=== PATIENT | male | born 1975 | race Caucasian/White ===

== ENCOUNTER → 2021-10-16 13:20 | Outpatient (BNVA) | payer OTHER, SELFPAY | PROVIDERS: Family Provider Family Medicine; PCP Family Medicine; Visit Provider Family Medicine | DX: Z00.00 Encounter for general adult medical examination without abnormal findings (principal) | CPT/HCPCS: 80053; 80061 ==

== ENCOUNTER 2021-12-20 08:55 | Day surgery (SDC) | payer OTHER, SELFPAY ==
[2021-12-18 13:37] VITALS: BMI 30.5
[2021-12-20 09:07] VITALS: BP 149/103; PULSE 70; RESP 16; TEMP 36.2; O2SAT 97
[2021-12-20] MEDS: sodium chloride 0.9% 1,000 ML 30 ML IV (09:17)
--- NOTE | 2021-12-20 10:27 | P.HP_ITS ---
Providers/Chief Complaint Primary Care Provider: Andi Ojeda MD Chief Complaint: Colon cancer screening History of Present Illness Leona Milner is a 46 year old male here for colonoscopy Medications/Allergies Home Medications Medication Instructions Recorded Confirmed Last Taken Type No Known Home Medications 10/05/21 12/20/21 Unknown History Allergies Allergy/AdvReac Type Severity Reaction Status Date / Time No Known Allergies Allergy Unverified 12/20/21 09:05 PFSH Acute PFSH: Medical History Encounter for wellness examination Family hx of colon cancer Surgical History Hx of appendectomy 2010 Hx of wisdom tooth extraction Family History Unknown Cancer cousin colon cancer Father Heart disease Diabetes Social History Smoking and tobacco status: never smoked Vitals/I&O/Wt Last Vital Signs Temp 97.1 F L 12/20/21 09:07 Pulse 70 12/20/21 09:07 Resp 16 12/20/21 09:07 BP 149/103 12/20/21 09:07 Pulse Ox 97 12/20/21 09:07 O2 Del Method 12/20/21 09:07 Weight last 48 hrs Weight 225 lb A&P Assessment and plan (1) Encounter for screening colonoscopy: Plan Colonoscopy Attestations Medical Necessity Statement*: Home Coding Level of Care Code Acute 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
--- NOTE | 2021-12-20 10:28 | ANES.PREANE2 ---
Pre-Anesthetic Assessment Height/Weight: Height 1.83 m Weight 102.058 kg Temp Pulse Resp BP Pulse Ox O2 Del Method 97.1 F L 70 16 149/103 97 12/20/21 09:07 12/20/21 09:07 12/20/21 09:07 12/20/21 09:07 12/20/21 09:07 12/20/21 09:07 Preop Diagnosis: Screening Operation Date: 12/20/21 10:30 Proposed Procedures p Colonoscopy 27813,Z12.11(Not Applicable) - Adan Zimmerman DO Was Beta Usha taken within 24 hours: N/A Was Clonidine taken within 24 hours: N/A Last intake: Intake Last Liquid Date 12/19/21 Last Liquid Time 22:00 Last Solid Date 12/18/21 Last Solid Time 22:00 Social No alcohol and No tobacco Exam alert, oriented x 3, clear to auscultation bilaterally and regular rate & rhythm Airway Submandibular: within normal limits Cervical ROM: within normal limits Mallampati: Class II Dentition: full History/ROS No significant history except as noted and No significant complaints Pulmonary None reported CV/HEM None reported None reported Hepatic None reported GI None reported Metabolic None reported Neuropsych None reported Anesthetic Plan ASA status: 1 Anesthesia: MAC Risk of > 500 ml blood loss (7ml/kg in children): No Medications/Allergies Home Medications Medication Instructions Recorded Confirmed Last Taken Type No Known Home Medications 10/05/21 12/20/21 Unknown History Allergies Allergy/AdvReac Type Severity Reaction Status Date / Time No Known Allergies Allergy Unverified 12/20/21 09:05 Current Medications Generic Name Dose Route Start Last Admin Trade Name Reyna PRN Reason Stop Dose Admin Sodium Chloride 1,000 mls @ 30 mls/hr 12/20/21 09:00 12/20/21 09:17 Sodium Chloride 0.9% IV 12/21/21 08:59 30 mls/hr .Q24H RENARD Administration PFSH Anesthesia Medical History Encounter for wellness examination Family hx of colon cancer Surgical History Hx of appendectomy 2010 Hx of wisdom tooth extraction Family History Unknown Cancer cousin colon cancer Father Heart disease Diabetes Social History Smoking and tobacco status: never smoked Data Anesthesia Cardiac Studies: No Data to Display
[2021-12-20 11:13] VITALS: BP 128/85; PULSE 68; RESP 20; TEMP 36.2; O2SAT 98
[2021-12-20 11:21] VITALS: BP 124/85; PULSE 65; RESP 18; O2SAT 98
[2021-12-20 11:26] VITALS: BP 134/87; PULSE 64; RESP 16; O2SAT 95
--- NOTE | 2021-12-20 15:44 | ANE.PACU2 ---
Inpatient post-anesthesia follow up: Airway intact: Yes Vital signs: Temperature 97.1 F Pulse Rate 64 Respiratory Rate 16 Blood Pressure 134/87 Pulse Oximetry 95 Oxygen Delivery Me thod Room Air Oxygen Flow Rate 3 Fraction of Inspir ed Oxygen Hydration adequate: Yes Nausea and vomiting: No Pain level: 1 Mental status: Baseline
== END 2021-12-20 11:43 | disposition home or self-care (01) ==
PROVIDERS: PCP Family Medicine; Visit Provider Surgery
PROC: 0DJD8ZZ Inspection of Lower Intestinal Tract, Via Natural or Artificial Opening Endoscopic (ICD-10-PCS; CPT 45378; principal; 2021-12-20 10:30)
DX: Z12.11 Encounter for screening for malignant neoplasm of colon (principal); K63.5 Polyp of colon
CPT/HCPCS: 45385; 88305; J2704; J7030

== ENCOUNTER → 2022-11-05 08:05 | Outpatient (BNVA) | payer OTHER, SELFPAY | PROVIDERS: PCP Family Medicine; Visit Provider Family Medicine | DX: Z00.00 Encounter for general adult medical examination without abnormal findings (principal); K63.5 Polyp of colon | CPT/HCPCS: 80053; 80061 ==

== ENCOUNTER → 2023-11-25 10:04 | Outpatient (BNVA) | payer OTHER, SELFPAY | PROVIDERS: PCP Family Medicine; Visit Provider Family Medicine | DX: Z00.00 Encounter for general adult medical examination without abnormal findings (principal); I10 Essential (primary) hypertension | CPT/HCPCS: 80053; 80061; 85025 ==

== ENCOUNTER 2024-08-08 05:00 | Emergency (ER) | payer OTHER, SELFPAY ==
[2024-08-08] VITALS (7 sets, daily range): BP systolic 117–182; BP diastolic 76–133; PULSE 68–85; RESP 16–18; TEMP 36.6; O2SAT 97–100; BMI 30.5
--- NOTE | 2024-08-08 05:23 | CTR_ITS ---
PROCEDURE INFORMATION: Exam: CT Head Without Contrast Exam date and time: 08/08/2024 5:30 AM Age: 49 years old Clinical indication: Pain; Headache; Vascular; Occipital GEORGE with hypertension; Additional info: Bad headache TECHNIQUE: Imaging protocol: Computed tomography of the head without contrast. Radiation optimization: All CT scans at this facility use at least one of these dose optimization techniques: automated exposure control; mA and/or kV adjustment per patient size (includes targeted exams where dose is matched to clinical indication); or iterative reconstruction. COMPARISON: No relevant prior studies available. RADIATION DOSE METRICS: Total DLP (mGy-cm): 1058.69 FINDINGS: Brain: Normal. No hemorrhage. Unremarkable white matter. No mass effect. Cerebral ventricles: No ventriculomegaly. Paranasal sinuses: Visualized sinuses are unremarkable. No fluid levels. Mastoid air cells: Visualized mastoid air cells are well aerated. Bones: Unremarkable. No acute fracture. Soft tissues: Unremarkable. CT/CT head wo con* [id number] IMPRESSION: No acute intracranial abnormality.
--- NOTE | 2024-08-08 05:43 | ED_ITS ---
Documented by User: Luis Alfredo England DO 08/08/24 05:57 HPI - Headache 2 General: Chief Complaint: Headache Stated Complaint: Head ache BP High Time Seen by Provider: 08/08/24 05:06 History of Present Illness: Patient presents with acute onset severe headache that began around 11 PM- midnight. The headache awakened patient from sleep around 4 AM and has persisted despite taking Advil. Patient rates current pain as 6-7/10. The headache originated from the shoulders/neck region, radiating upward to encompass the entire head, including behind the eyes. Patient reports associated nausea but no vomiting. This is described as the worst headache ever experienced, notably different from usual mild headaches that typically don't require medication. Patient denies vision changes. Reports some neck tension but no distinct neck pain. Time to peak intensity estimated at approximately one hour, though patient notes interrupted sleep makes timing unclear. Past Medical History: History of mild hypertension, previously managed with low- dose antihypertensive medication which was discontinued after blood pressure improved. No other reported medical conditions. Current Medications: None Associated symptoms: Deny confusion Related Data Home Medications ?Medication ?Instructions ?Recorded ?Confirmed ibuprofen 125 mg-acetaminophen 250 2 tab PO Q8H PRN Fe lisa Or Pain 08/08/24 08/08/24 mg tablet (Dual Action Pain Reliever) Allergies Allergy/AdvReac Type Severity Reaction Status Date / Time No Known Allergies Allergy Unverified 11/25/23 09:04 Review of Systems 2 General: Reports: 10 or more systems reviewed and unremarkable except in HPI and below Neuro: Reports: headache(s); Denies: numbness in extremities, weakness in extremities, difficulty walking or confusion PFSH ED 2 PFSH: Medical History Hypertension Hyperplastic colon polyp Family hx of colon cancer Encounter for wellness examination Surgical History Hx of appendectomy 2011 Hx of wisdom tooth extraction Family History Unknown Cancer cousin colon cancer Father Heart disease Diabetes Social History Smoking and tobacco/nicotine status: never used tobacco/nicotine Physical Exam 2 Const: COMMON NORMALS: no acute distress, patient oriented x3, alert and well nourished HENMT: COMMON NORMALS: normocephalic HEAD & SCALP: normocephalic Eye: COMMON NORMALS: Equal, round and reactive pupils present, EOMs intact bilaterally and conjunctivae normal CONJUNCTIVA: Yes conjunctivae normal P UPIL: Yes Equal, round and reactive pupils present Neck/C-Spine: COMMON NORMALS: full ROM, no lymphadenopathy, supple, no meningeal signs, no JVD and Thyroid normal THYROID: Thyroid normal Chest: COMMONS NORMALS: normal inspection of the chest and normal palpation of entire chest wall Resp: COMMON NORMALS: normal respiratory effort, No retractions, No use of accessory muscles, clear to auscultation bilaterally and percussion normal A USCULTATION: clear to auscultation bilaterally PERCUSSION: percussion normal Cardio: COMMON NORMALS: no JVD GI: COMMON NORMALS: Normal to inspection, nondistended, normoactive bowel sounds present, Soft to palpation, non-tender, No hepatosplenomegaly present, no masses and no bruits PALPATION: Yes Soft to palpation and Yes No hepatosplenomegaly present Extremity: COMMON NORMALS: normal to inspection, full ROM, capillary refill normal, no joint enlargement, no clubbing, cyanosis or edema, no calf tenderness and no pedal edema Neuro: COMMON NORMALS: patient oriented x3 SENSORIUM/ORIENTATION: Yes alert MENINGEAL SIGNS: Yes no meningeal signs Skin: COMMON NORMALS: no rashes or lesions noted, turgor normal and no jaundice GENERAL SKIN EXAM: no rashes or lesions noted and turgor normal Course 2 Vital Signs: Vital signs: Vital Signs Temperature 97.8 F 08/08/24 05:02 Pulse Rate 72 08/08/24 09:47 Respiratory Rate 16 08/08/24 09:47 Blood Pressure 117/76 08/08/24 09:47 Pulse Oximetry 100 08/08/24 09:47 Oxygen Delivery Me thod Room Air 08/08/24 09:47 MDM - Headache Medical Decision Making 1. Acute Severe Headache - Concerning for possible secondary headache given acute onset, severity, and 'worst headache of life' description - Plan for immediate headache treatment with medication - CT head ordered to rule out intracranial pathology 2. Hypertensive Urgency - Elevated blood pressure likely contributing to headache symptoms - Will reassess blood pressure after pain management - May need to restart antihypertensive medication depending on response 3. Plan: - Immediate pain management - CT head - Blood pressure monitoring - Will reassess after interventions Patient signed over to oncoming ED physician. Lab Data 08/08/24 05:42 08/08/24 05:[address] 08/08/24 05:23 IMPRESSION: No acute intracranial abnormality. Head CTA 08/08/24 06:46 IMPRESSION: 1. 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 Otherwise the basilar artery is patent. 2. Otherwise unremarkable CTA of the head. Laboratory Results WBC 6.98 10^3/uL (3.29-11.43) 08/08/24 05:42 RBC 5.24 10^6/uL (3.85-5.65) 08/08/24 05:42 Hgb 15.20 g/dL (11.27-16.99) 08/08/24 05:42 Hct 46.7 % (37-53) 08/08/24 05:42 MCV 89.1 fl (82-101) 08/08/24 05:42 MCH 29.0 pg (27-33) 08/08/24 05:42 MCHC 32.5 g/dL (30-55) 08/08/24 05:42 RDW 12.4 % (12.1-15.1) 08/08/24 05:42 Plt Count 239 10^3/cmm (157-399) 08/08/24 05:42 MPV 10.0 fL (7.4-10.4) 08/08/24 05:42 Neut % (Auto) 61.2 % 08/08/24 05:42 Lymph % (Auto) 27.2 % 08/08/24 05:42 [place] % (Auto) 8.0 % 08/08/24 05:42 Eos % (Auto) 2.6 % 08/08/24 05:42 Baso % (Auto) 0.6 % 08/08/24 05:42 Neut # (Auto) 4.27 10^3/uL (1.8-7.7) 08/08/24 05:42 Lymph # (Auto) 1.9 10^3/uL (0.8-4.8) 08/08/24 05:42 [place] # (Auto) 0.6 10^3/uL (0.2-0.9) 08/08/24 05:42 Eos # (Auto) 0.2 10^3/uL (0.0-0.8) 08/08/24 05:42 Baso # (Auto) 0.0 10^3/uL (0.0-0.1) 08/08/24 05:42 Nucleated RBC % (auto) 0 % 08/08/24 05:42 Nucleated RBCs # 0.0 /100WBC 08/08/24 05:42 ESR < 1 mm/hr (0-10) 08/08/24 05:42 Sodium 140 mmol/L (136-145) 08/08/24 05:42 Potassium 4.3 mmol/L (3.5-5.1) 08/08/24 05:42 Chloride 104 mmol/L (98-107) 08/08/24 05:42 Carbon Dioxide 26 mmol/L (22-29) 08/08/24 05:42 Anion Gap 14.3 (5-19) 08/08/24 05:42 BUN 15 mg/dL (6-20) 08/08/24 05:42 Creatinine 1.2 mg/dL (0.7-1.2) 08/08/24 05:42 GFR Calculation 64.1 mL/min (90-130) L 08/08/24 05:42 Glucose 94 mg/dL (65-115) 08/08/24 05:42 Calculated Osmolality 291 mOsm/kg (285-295) 08/08/24 05:42 Calcium 9.1 mg/dL (8.5-10.5) 08/08/24 05:42 Total Bilirubin 0.6 mg/dL (0.15-1.2) 08/08/24 05:42 AST 15 U/L (0-40) 08/08/24 05:42 ALT 21 U/L (0-41) 08/08/24 05:42 Alkaline Phosphatase 45 U/L (40-130) 08/08/24 05:42 Total Protein 6.6 g/dL (6.6-8.7) 08/08/24 05:42 Albumin 4.2 g/dL (3.5-5.2) 08/08/24 05:42 Globulin 2.4 g/dL (1.3-4.6) 08/08/24 05:42 XR interpretation done by ED provider, pending radiology final review Discharge Plan Discharge Patient Disposition: Xfer Short-Term Hosp Condition: Stable Referrals: Andi Ojeda MD [Primary Care Provider, [facility]] Print Language: Northern Irish Sign Out Sign Out Data: Patient Sign Out occurred on 08/08/24 at 06:30. Patient's care was discussed, and care was transferred from Luis Alfredo England DO to Carlos Watt DO. Coding Level of Care Code ED Bridal Service Sales And Management for Chg Fwd Documented by User: Carlos Watt DO 08/08/24 10:37 HPI - Headache 2 General: Chief Complaint: Headache Stated Complaint: Head ache BP High Time Seen by Provider: 08/08/24 05:06 Related Data Home Medications ?Medication ?Instructions ?Recorded ?Confirmed ibuprofen 125 mg-acetaminophen 250 2 tab PO Q8H PRN Fe lisa Or Pain 08/08/24 08/08/24 mg tablet (Dual Action Pain Reliever) Allergies Allergy/AdvReac Type Severity Reaction Status Date / Time No Known Allergies Allergy Unverified 11/25/23 09:04 PFSH ED 2 PFSH: Medical History Hypertension Hyperplastic colon polyp Family hx of colon cancer Encounter for wellness examination Surgical History Hx of appendectomy 2010 Hx of wisdom tooth extraction Family History Unknown Cancer cousin colon cancer Father Heart disease Diabetes Social History Smoking and tobacco/nicotine status: never used tobacco/nicotine Course 2 Vital Signs: Vital signs: Vital Signs Temperature 97.8 F 08/08/24 05:02 Pulse Rate 72 08/08/24 09:47 Respiratory Rate 16 08/08/24 09:47 Blood Pressure 117/76 08/08/24 09:47 Pulse Oximetry 100 08/08/24 09:47 Oxygen Delivery Me thod Room Air 08/08/24 09:47 MDM - Headache Medical Decision Making 1. Acute Severe Headache - Concerning for possible secondary headache given acute onset, severity, and 'worst headache of life' description - Plan for immediate headache treatment with medication - CT head ordered to rule out intracranial pathology 2. Hypertensive Urgency - Elevated blood pressure likely contributing to headache symptoms - Will reassess blood pressure after pain management - May need to restart antihypertensive medication depending on response 3. Plan: - Immediate pain management - CT head - Blood pressure monitoring - Will reassess after interventions Patient signed over to oncoming ED physician. Care assumed at change of shift. Patient's blood pressure improved with medications given his headache and already began improving with the Benadryl and other medicines given earlier and is nearly resolved on blood pressure improved. 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 On the report it is described as being still patent. Blood pressure is beginning to increase patient has been started on nicardipine and we are consulting with neurosurgery and IR we will forward the images. Awaiting return call. Talk to on-call neurosurgery at [facility] after they had reviewed the films that we had uploaded to them. He recommends at this point that we transfer ER to ER they will repeat testing and reevaluate. Patient's pain has resolved with blood pressure control. For now until patient is seen by neurosurgery we will continue the nicardipine for blood pressure control we also did add one-time doses labetalol. At the time of discharge patient's symptoms have resolved his blood pressure is well-controlled. Dr. Eason in the ER has excepted patient on transfer to [facility]. Medical Records I reviewed the patient's medical records. Lab Data I reviewed the patient's lab results. 08/08/24 05:42 08/08/24 05:[address] 08/08/24 05:23 IMPRESSION: No acute intracranial abnormality. Head CTA 08/08/24 06:46 IMPRESSION: 1. 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 Otherwise the basilar artery is patent. 2. Otherwise unremarkable CTA of the head. Laboratory Results WBC 6.98 10^3/uL (3.29-11.43) 08/08/24 05:42 RBC 5.24 10^6/uL (3.85-5.65) 08/08/24 05:42 Hgb 15.20 g/dL (11.27-16.99) 08/08/24 05:42 Hct 46.7 % (37-53) 08/08/24 05:42 MCV 89.1 fl (82-101) 08/08/24 05:42 MCH 29.0 pg (27-33) 08/08/24 05:42 MCHC 32.5 g/dL (30-55) 08/08/24 05:42 RDW 12.4 % (12.1-15.1) 08/08/24 05:42 Plt Count 239 10^3/cmm (157-399) 08/08/24 05:42 MPV 10.0 fL (7.4-10.4) 08/08/24 05:42 Neut % (Auto) 61.2 % 08/08/24 05:42 Lymph % (Auto) 27.2 % 08/08/24 05:42 [place] % (Auto) 8.0 % 08/08/24 05:42 Eos % (Auto) 2.6 % 08/08/24 05:42 Baso % (Auto) 0.6 % 08/08/24 05:42 Neut # (Auto) 4.27 10^3/uL (1.8-7.7) 08/08/24 05:42 Lymph # (Auto) 1.9 10^3/uL (0.8-4.8) 08/08/24 05:42 [place] # (Auto) 0.6 10^3/uL (0.2-0.9) 08/08/24 05:42 Eos # (Auto) 0.2 10^3/uL (0.0-0.8) 08/08/24 05:42 Baso # (Auto) 0.0 10^3/uL (0.0-0.1) 08/08/24 05:42 Nucleated RBC % (auto) 0 % 08/08/24 05:42 Nucleated RBCs # 0.0 /100WBC 08/08/24 05:42 ESR < 1 mm/hr (0-10) 08/08/24 05:42 Sodium 140 mmol/L (136-145) 08/08/24 05:42 Potassium 4.3 mmol/L (3.5-5.1) 08/08/24 05:42 Chloride 104 mmol/L (98-107) 08/08/24 05:42 Carbon Dioxide 26 mmol/L (22-29) 08/08/24 05:42 Anion Gap 14.3 (5-19) 08/08/24 05:42 BUN 15 mg/dL (6-20) 08/08/24 05:42 Creatinine 1.2 mg/dL (0.7-1.2) 08/08/24 05:42 GFR Calculation 64.1 mL/min (90-130) L 08/08/24 05:42 Glucose 94 mg/dL (65-115) 08/08/24 05:42 Calculated Osmolality 291 mOsm/kg (285-295) 08/08/24 05:42 Calcium 9.1 mg/dL (8.5-10.5) 08/08/24 05:42 Total Bilirubin 0.6 mg/dL (0.15-1.2) 08/08/24 05:42 AST 15 U/L (0-40) 08/08/24 05:42 ALT 21 U/L (0-41) 08/08/24 05:42 Alkaline Phosphatase 45 U/L (40-130) 08/08/24 05:42 Total Protein 6.6 g/dL (6.6-8.7) 08/08/24 05:42 Albumin 4.2 g/dL (3.5-5.2) 08/08/24 05:42 Globulin 2.4 g/dL (1.3-4.6) 08/08/24 05:42 Discharge Plan Discharge Patient Disposition: Xfer Short-Term Hosp Condition: Stable Referrals: Andi Ojeda MD [Primary Care Provider, [facility]] Print Language: [place] Irish Sign Out Sign Out Data: Patient Sign Out occurred on 08/08/24 at 06:30. Patient's care was discussed, and care was transferred from Luis Alfredo England DO to Carlos Watt DO. Coding Level of Care Code ED Bridal Service Sales And Management for Bev White
[2024-08-08] MEDS: sodium chloride 0.9% 1,000 ML 999 ML IV (05:45)
[2024-08-08 05:47] LABS: Basophils % 0.6 %; Eosinophils # 0.2 10^3/uL (0.0-0.8); Eosinophils % 2.6 %; Hematocrit 46.7 % (37-53); Lymphocytes # 1.9 10^3/uL (0.8-4.8); Lymphocytes % 27.2 %; Mean Corpuscular HGB Conc 32.5 g/dL (30-55); Mean Corpuscular Volume 89.1 fl (82-101); Monocytes # 0.6 10^3/uL (0.2-0.9); Neutrophils # 4.27 10^3/uL (1.8-7.7); Neutrophils % 61.2 %; Nucleated Red Blood Cells % 0 %; Platelet Count 239 10^3/cmm (157-399); Red Blood Count 5.24 10^6/uL (3.85-5.65); Red Cell Distribution Width 12.4 % (12.1-15.1); White Blood Count 6.98 10^3/uL (3.29-11.43)
[2024-08-08] MEDS: diphenhydrAMINE 50 mg/mL SDV 1mL IVP (05:47)
[2024-08-08] MEDS: metoclopramide 5 mg/mL SDV 2 mL 10 MG IVP (05:48)
[2024-08-08 05:51] LABS: Erythrocyte Sedimentation Rate < 1 mm/hr (0-10)
[2024-08-08 06:07] LABS: Alanine Aminotransferase 21 U/L (0-41); Albumin Level 4.2 g/dL (3.5-5.2); Alkaline Phosphatase 45 U/L (40-130); Anion Gap 14.3 (5-19); Aspartate Amino Transferase 15 U/L (0-40); Blood Urea Nitrogen 15 mg/dL (6-20); Calcium 9.1 mg/dL (8.5-10.5); Carbon Dioxide 26 mmol/L (22-29); Chloride 104 mmol/L (98-107); Creatinine Clr Calc Pharmacy 91.0242; Globulin 2.4 g/dL (1.3-4.6); Glomerular Filtration Rate 64.1 mL/min (90-130); Glucose 94 mg/dL (65-115); Osmolality Calculated 291 mOsm/kg (285-295); Potassium 4.3 mmol/L (3.5-5.1); Sodium 140 mmol/L (136-145); Total Bilirubin 0.6 mg/dL (0.15-1.2); Total Protein 6.6 g/dL (6.6-8.7)
--- NOTE | 2024-08-08 06:46 | CTR_ITS ---
PROCEDURE INFORMATION: Exam: CTA Head With Contrast, Arteriography Exam date and time: 08/08/2024 6:56 AM Age: 49 years old Clinical indication: Pain; Headache; Occipital GEORGE with hypertension. ; Additional info: Intractable headache TECHNIQUE: Imaging protocol: Computed tomographic angiography of the head with contrast. Exam focused on the arteries. 3D rendering (Not supervised by radiologist): MIP and/or 3D reconstructed images were created by the technologist. Radiation optimization: All CT scans at this facility use at least one of these dose optimization techniques: automated exposure control; mA and/or kV adjustment per patient size (includes targeted exams where dose is matched to clinical indication); or iterative reconstruction. Contrast material: OMNI 350; Contrast volume: 100 ml; Contrast route: INTRAVENOUS (IV); COMPARISON: CT head wo con* [id number] 08/08/2024 5:30 AM RADIATION DOSE METRICS: Total DLP (mGy-cm): 204.02 FINDINGS: ANTERIOR CIRCULATION: Right internal carotid artery: Intracranial segment is patent with no significant stenosis. No aneurysm. Right middle cerebral artery: No occlusion or significant stenosis. No aneurysm. Right anterior cerebral artery: No occlusion or significant stenosis. No aneurysm. Left internal carotid artery: Intracranial segment is patent with no significant stenosis. No aneurysm. Left middle cerebral artery: No occlusion or significant stenosis. No aneurysm. Left anterior cerebral artery: No occlusion or significant stenosis. No aneurysm. POSTERIOR CIRCULATION: Right vertebral artery: No occlusion or significant stenosis. No aneurysm. Left vertebral artery: No occlusion or significant stenosis. No aneurysm. Basilar artery: There is focal fusiform dilatation measuring up to 6 mm at the origin with a questionable focal dissection flap. Please see image 23 of series 4. Otherwise the basilar artery is patent. Right posterior cerebral artery: No occlusion or significant stenosis. No aneurysm. Left posterior cerebral artery: No occlusion or significant stenosis. No aneurysm. Brain: No definite mass, mass effect, or midline shift. Cerebral ventricles: No ventriculomegaly. Bones/joints: Unremarkable. No acute fracture. Soft tissues: Unremarkable. CT/CT angio head [id number] IMPRESSION: 1. 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 Otherwise the basilar artery is patent. 2. Otherwise unremarkable CTA of the head.
[2024-08-08] MEDS: iohexol 350 mg/mL 500 mL Btl (per mL) IV (07:04)
[2024-08-08] MEDS: ketorolac 30 mg/mL INJ IVP (07:04)
[2024-08-08] MEDS: hyDRALAzine 20 mg/mL INJ 1 mL 10 MG IVP (07:05)
[2024-08-08] MEDS: labetalol 5 mg/mL SDV 20mL 10 MG IVP ×2 (07:08→09:05)
[2024-08-08] MEDS: nicardipine 20 MG/200 ML PREMIX 50 MG IV (07:48)
--- NOTE | 2024-08-08 07:59 | PC.NURSE ---
verbal order from MD to titrate nicardipine drip to keep systolic pressure below 120.
--- NOTE | 2024-08-08 09:49 | PC.NURSE ---
Addendum entered by Caryn Barrow RN 08/08/24 09:50: nicardipine running at 15 mg/hr at time of ed departure. original bag completed just before ED departure - new bag spiked and running. total bags dispensed - 3 (1 for ems in case of hanging bag completing, 1 infused completely on pt, 1 running on pt currently) Original Note: 1 bag of nicardipine provided to EMS crew along with titration protocol.
== END 2024-08-08 09:57 | disposition short-term general hospital (02) ==
PROVIDERS: Family Medicine; Emergency Provider Family Medicine; PCP Family Medicine
DX: I77.75 Dissection of other precerebral arteries (principal); I72.5 Aneurysm of other precerebral arteries; I10 Essential (primary) hypertension
CPT/HCPCS: 36415; 70450; 70496; 80053; 85025; 85651; 96365; 96366; 96375; 96376; 99285; J0360; J1200; J1885; J2765; J3490; J7030

== ENCOUNTER → 2024-08-16 14:43 | Outpatient (BNVA) | payer OTHER, SELFPAY | PROVIDERS: PCP Family Medicine; Visit Provider Family Medicine | DX: I10 Essential (primary) hypertension (principal); R51.9 Headache, unspecified | CPT/HCPCS: 85651 ==

== ENCOUNTER 2024-11-16 16:04 | Outpatient (CLI) | payer OTHER, SELFPAY | END 2024-11-16 16:05 | disposition home or self-care (01) | LOC: SLEEP 16:05 | PROVIDERS: PCP Family Medicine; Visit Provider Internal Medicine | DX: G47.33 Obstructive sleep apnea (adult) (pediatric) (principal) | CPT/HCPCS: G0399 ==